=== PATIENT | female | born 1970 | race Caucasian/White ===

== ENCOUNTER 2020-07-22 02:33 | Emergency (ER) | payer OTHER ==
[~2020-07-22] VITALS: Ht 162.6 cm; Wt 70.8 kg
[~2020-07-22 02:33] MED LIST: PROMETRIUM
[2020-07-22] MEDS ORDERED: TOPAMAX100 MG PO (03:11)
[2020-07-22] MEDS ORDERED: ADIPEX-P37.5 M1 PO (03:11)
[2020-07-22] MEDS ORDERED: ZOFRAN ODT4 MG PO (04:11)
[2020-07-22] MEDS ORDERED: HYDROCODON-ACE1 EAC7 PO (04:11)
[2020-07-22] MEDS ORDERED: COLACE100 MG PO (04:55)
[2020-07-22 05:05] VITALS: BP 140/72
== END 2020-07-22 05:05 | disposition home or self-care (01) ==
LOC: M.ERS 02:33
DX: K64.5 Perianal venous thrombosis (principal); R11.0 Nausea; Z79.899 Other long term (current) drug therapy